=== PATIENT | female | born 1945 | race American Indian/Alaskan Native ===

== ENCOUNTER 2020-09-15 07:58 | Day surgery (SDC) | payer MEDICARE, OTHER ==
[2020-09-15] MEDS ORDERED: BACTERIOSTATIC SODIUM CHLORIDE 0.9% 30 ML VIAL INFILTRATI ONE (08:41)
[2020-09-15] MEDS ORDERED: fentaNYL 100 MCG/2 ML INJ IV NR (08:52)
[2020-09-15] MEDS ORDERED: ONDANSETRON 4 MG/2 ML INJ IV PRN (08:52)
[2020-09-15] MEDS ORDERED: HYDROmorphone 1 MG/1 ML INJ IV PRN ×2 (08:52)
--- NOTE | 2020-09-15 08:53 | Anesthesia Day of Surgery ---
Anesthesia Day of Surgery - Day of Surgery Patient Examined: Yes Patient H&P Reviewed: Yes Patient is NPO: Yes
--- NOTE | 2020-09-15 08:54 | Anesthesia Consultation ---
Anesthesia Consult and Med Hx Date of service: 09/15/20 - Airway Anesthetic Teeth Evaluation: Poor ROM Head & Neck: Adequate Mental/Hyoid Distance: Adequate Mallampati Class: Class II Intubation Access Assessment: Good - Pre-Operative Health Status ASA Pre-Surgery Classification: ASA3 Nerve Block: IS (GA if needed) - Pulmonary Hx Smoking: No Hx Asthma: No COPD: No Hx Pneumonia: No Hx Sleep Apnea: Yes - Cardiovascular System Hx Hypertension: Yes Hx Heart Attack/AMI: No (Pt reports negative NST 2019) Hx Pacemaker: No Hx Internal Defibrillator: No Hx Heart Murmur: No - Central Nervous System Hx Back Pain: No Hx Psychiatric Problems: No - Gastrointestinal Hx Gastroesophageal Reflux Disease: No - Endocrine Hx Renal Disease: Yes Hx End Stage Renal Disease: Yes (Not on HD yet) Hx Cirrhosis: No Hx Liver Disease: No Hx Non-Insulin Dependent Diabetes: Yes - Hematic Hx Anemia: No Hx Sickle Cell Disease: No - Other Systems Hx Alcohol Use: No Hx Substance Use: No Hx Cancer: No Hx Obesity: Yes
[2020-09-15] MEDS ORDERED: MIDAZOLAM 2 MG/2 ML INJ IV NR (09:00)
[2020-09-15] MEDS ORDERED: SODIUM CHLORIDE 0.9% 1000 ML 1,000 ML IV SCH (09:00)
[2020-09-15] MEDS ORDERED: BUPIVACAINE/PF (0.5%) 5 MG/1 ML 30 ML VIAL INFILTRATI ONE ×3 (09:34→11:10)
[2020-09-15] MEDS ORDERED: SODIUM CHLORIDE 0.9% 250ML 250 ML ONE (09:40)
[2020-09-15] MEDS ORDERED: rifAMPin 600 MG VIAL ONE (09:40)
[2020-09-15] MEDS ORDERED: HEPARIN 10,000 UNITS/10 ML VIAL ONE (09:40)
[2020-09-15 09:41] LABS: Hematocrit 29.6 % (30.3-42.9); Hemoglobin 9.9 gm/dl (10.1-14.3); Mean Corpuscular HGB Conc 34 % (30-34); Mean Corpuscular Volume 94 fl (79-97); Platelet Count 245 K/mm3 (140-440); Red Blood Count 3.15 M/mm3 (3.65-5.03); Red Cell Distribution Width 14.3 % (13.2-15.2)
[2020-09-15] MEDS ORDERED: SODIUM CHLORIDE 0.9% 500 ML 500 ML ONE (09:41)
[2020-09-15] MEDS ORDERED: propofoL 200 MG/20 ML VIAL IV ONE ×3 (10:27→11:33)
[2020-09-15] MEDS ORDERED: LIDOCAINE MPF (2%) 20 MG/1 ML VIAL 5 ML ONE (10:27)
[2020-09-15] MEDS ORDERED: HEPARIN 10,000 UNIT/1 ML VIAL IR ONE (11:07)
[2020-09-15] MEDS ORDERED: SODIUM CHLORIDE 0.9% 500 ML IVPB IRRIGATION ONE (11:08)
[2020-09-15] MEDS ORDERED: rifAMPin 600 MG VIAL IV ONE (11:09)
[2020-09-15] MEDS ORDERED: SODIUM CHLORIDE 0.9% IRR 1,500 ML BOTTLE IR ONE (11:09)
[2020-09-15] MEDS ORDERED: ONDANSETRON 4 MG/2 ML INJ ONE (11:56)
--- NOTE | 2020-09-15 12:01 | Short Stay Summary ---
Short Stay Documentation Date of service: 09/15/20 Narrative H&P: See H&P - History H&P: obtained from office - Allergies and Medications Current Medications: Allergies Penicillins Adverse Reaction (Intermediate, Verified 09/11/20 15:08) Dizziness Home Medications Medication Instructions Recorded Confirmed Last Taken Type Aspirin [Adult Aspirin] 81 mg PO DAILY 09/11/20 09/11/20 Unknown History Sitagliptin Phosphate [Januvia] 25 mg PO DAILY 09/11/20 09/11/20 Unknown History Spironolactone [Aldactone] 12.5 mg PO DAILY 09/11/20 09/11/20 Unknown History Ticagrelor [Brilinta] 90 mg PO BID 09/11/20 09/11/20 Unknown History hydrALAZINE [Apresoline TAB] 100 mg PO TID 09/11/20 09/11/20 Unknown History Active Medications Fentanyl (Fentanyl 100 Mcg/2 Ml Inj) 100 mcg IV ONCE NR Stop: 09/15/20 18:00 Hydromorphone HCl (Hydromorphone 1 Mg/1 Ml Inj) 0.25 mg IV Q10MIN PRN PRN Reason: Pain, Moderate (4-6) Stop: 09/15/20 23:00 Hydromorphone HCl (Hydromorphone 1 Mg/1 Ml Inj) 0.5 mg IV Q10MIN PRN PRN Reason: Pain , Severe (7-10) Stop: 09/16/20 23:00 Clindamycin HCl (Cleocin 900 Mg/50 Ml) 900 mg in 50 mls @ 100 mls/hr IV PREOP BARB; Protocol Stop: 09/15/20 23:01 Sodium Chloride (Nacl 0.9% 1000 Ml) 1,000 mls @ 42 mls/hr IV DIRECT BARB Midazolam HCl (Midazolam 2 Mg/2 Ml Inj) 2 mg IV PREOP NR Stop: 09/15/20 23:59 Ondansetron HCl (Ondansetron 4 Mg/2 Ml Inj) 4 mg IV ONCE PRN PRN Reason: Nausea And Vomiting Stop: 09/15/20 18:00 - Brief post op/procedure progress note Date of procedure: 09/15/20 Pre-op diagnosis: End-Stage Renal Disease Post-op diagnosis: same Procedure: Creation of Left Brachial Artery to Left Axillary Vein Arteriovenous Graft with 6 mm Bovine Artegraft Anesthesia: MAC, regional Surgeon: ISELA TOLBERT Estimated blood loss: minimal Pathology: none Condition: stable - Disposition Condition at discharge: Good Disposition: DC-01 TO HOME OR SELFCARE Short Stay Discharge Plan Activity: other (No heavy lifting with left arm for 2 weeks.) Wound: open to air, keep clean and dry, other (Okay to wash left arm wounds with soap and water but do not soak in water for 2 weeks.) Follow up with: ISELA TOLBERT MD [Staff Physician] - 14 Days Prescriptions: HYDROcodone/APAP 7.5-325 [[place] 7.5/325] 1 each PO Q6HR PRN #40 tablet PRN Reason: Pain
--- NOTE | 2020-09-15 12:03 | Operative Report ---
Operative Report Operative Report: Date of procedure: 09/15/2020 Pre-operative diagnosis: End-Stage Renal Disease Post-operative diagnosis: Same Procedure(s): 1. Creation of Left Brachial Artery to Axillary Vein AV Graft with 6 mm Bovine Graft Artergraft Surgeon: Jin Couch MD Real Estate Asset Manager: None Anesthesia: Regional/MAC EBL: Minimal Counts: Correct Complications: None Condition: Stable Findings: Successful Creation of Left Arm AV Graft with Palpable Thrill and Palpable Radial Pulse at the Completion of the Case. Specimen: None Indication: Patient is a 75-year-old female with a history of end-stage renal disease who is in need of long-term dialysis access. She had a vein mapping that demonstrated she is not a candidate for creation of an arteriovenous fistula so she requires creation of an arteriovenous graft. She was given the risk, benefits, and alternative procedures and consented to the procedure. Description of Procedure: Prior to being transported to the operating room the patient had a regional block of the left arm performed. After the block was performed the patient was transported to the operating room and adequately sedated. The patient's left arm was then prepped and draped in normal sterile fashion. A longitudinal incision was made on the medial aspect of the arm just proximal to the ante cubital crease and carried down to the brachial artery using sharp dissection. The brachial artery was dissected out circumferentially both proximally and distally and controlled with vessel loops. A second incision was created in longitudinal fashion on the medial aspect of the arm just distal to the axillary crease and carried down to the axillary vein using sharp dissection. Axillary vein was dissected out circumferentially and controlled with a vessel loop. I then used a Alma-Wick tunneler to tunnel from the brachial artery incision to the axillary vein incision and then put an 6 mm bovine through the tunnel. I infused with heparinized saline to ensure that it was not twisted or kinked. I put the brachial artery vessel loops on tension controlling the flow and then created an arteriotomy using an 11 blade and Bustos scissors. I beveled the graft and created an end-to-side anastomosis using 6-0 Prolene running fashion. I clamped the graft just proximal to the anastomosis and then released the vessel loops restoring flow in the brachial artery. I placed quick clot in incision to achieve hemostasis. I cut the proximal end of the graft to the appropriate length and beveled the graft in preparation for a venous anastomosis. I controlled the axillary vein a Satinsky clamp and created a venotomy using an 11 blade and Bustos scissors. I created an end to side anastomosis using a 6-0 Prolene in running fashion. Prior to completing the anastomosis I flushed the graft to ensure there was no thrombus and then completed the anastamosis. I released all clamps allowing flow into the AV graft which had an excellent thrill. I packed the wound with quick clot to achieve hemostasis. I anesthetized both wounds with 0.5% Marcaine and then closed both wounds in 2 layers using 3-0 Vicryl in running fashion in the deep dermal layer and 4-0 Monocryl in running fashion the subcuticular layer. I dressed both wounds with Dermabond. The patient tolerated the procedure well all sponge, needle, and instrument counts were correct. The patient was taken to recovery in stable condition.
--- NOTE | 2020-09-15 15:19 | Post Anesthesia Evaluation ---
- Post Anesthesia Evaluation Patient Participated: Yes Airway Patent: Yes Stable Respiratory Function: Yes Nausea/Vomiting: No Temp > 96.8F: Yes Pain Manageable: Yes Adequeate Hydration: Yes Anesthesia Complications: No Block Receding Appropriately: Not Applicable Patient on Ventilator: No
[2020-09-15 18:58] VITALS: BP 169/69
== END 2020-09-15 07:59 | disposition home or self-care (01) ==
LOC: OR 07:58
PROVIDERS: ATTEND Surgery Vascular Surgery
DX: I12.0 Hypertensive chronic kidney disease with stage 5 chronic kidney disease or end stage renal disease (principal); E11.22 Type 2 diabetes mellitus with diabetic chronic kidney disease; N18.6 End stage renal disease; G47.30 Sleep apnea, unspecified; E66.9 Obesity, unspecified; Z98.41 Cataract extraction status, right eye; Z98.42 Cataract extraction status, left eye; Z87.440 Personal history of urinary (tract) infections; Z98.890 Other specified postprocedural states; Z68.34 Body mass index [BMI] 34.0-34.9, adult
CPT/HCPCS: 36415; 36830; 64415; 76942; 80048; 82962; 85027; C1768; J1644; J2250; J2405; J2704; J3010; J3490; J7030; J7040; J7050; 64450

== ENCOUNTER 2021-09-23 06:56 | Day surgery (SDC) | payer MEDICARE, OTHER ==
[2021-09-23] MEDS ORDERED: SODIUM CHLORIDE 0.9% 500 ML 500 ML IV SCH (08:00)
[2021-09-23 08:38] LABS: Basophils # (Auto) 0.2 K/mm3 (0.0-0.1); Basophils % (Auto) 2.8 % (0.0-1.8); Eosinophils # (Auto) 0.2 K/mm3 (0.0-0.4); Eosinophils % (Auto) 1.9 % (0.0-4.3); Hematocrit 39.1 % (30.3-42.9); Hemoglobin 12.4 gm/dl (10.1-14.3); Lymphocytes % (Auto) 12.2 % (13.4-35.0); Mean Corpuscular HGB Conc 32 % (30-34); Mean Corpuscular Volume 109 fl (79-97); Monocytes # (Auto) 0.7 K/mm3 (0.0-0.8); Monocytes % (Auto) 8.9 % (0.0-7.3); Platelet Count 217 K/mm3 (140-440); Red Blood Count 3.57 M/mm3 (3.65-5.03); Red Cell Distribution Width 19.9 % (13.2-15.2)
[2021-09-23 08:51] LABS: INR 1.02 (0.87-1.13)
--- NOTE | 2021-09-23 08:53 | Short Stay Summary ---
Short Stay Documentation Date of service: 09/23/21 - History Principal diagnosis: Thrombosed dialysis access Past Medical History: dialysis, ESRD Past Surgical History: Other (Left arm AV graft brachial axillary) - Allergies and Medications Current Medications: Allergies Penicillins Adverse Reaction (Intermediate, Verified 09/11/20 15:08) Dizziness Home Medications Medication Instructions Recorded Confirmed Last Taken Type Aspirin [Adult Aspirin] 81 mg PO DAILY 09/11/20 09/15/20 09/14/20 08:00 History Sitagliptin Phosphate [Januvia] 25 mg PO DAILY 09/11/20 09/15/20 09/14/20 08:00 History Spironolactone [Aldactone] 12.5 mg PO DAILY 09/11/20 09/15/20 09/14/20 08:00 History Ticagrelor [Brilinta] 90 mg PO BID 09/11/20 09/15/20 09/14/20 20:00 History hydrALAZINE [Apresoline TAB] 100 mg PO TID 09/11/20 09/15/20 09/15/20 08:51 History HYDROcodone/APAP 7.5-325 [[place] 1 each PO Q6HR PRN #40 tablet 09/15/20 Unknown Rx 7.5/325] Active Medications Sodium Chloride (Nacl 0.9% 500 Ml) 500 mls @ 50 mls/hr IV DIRECT BARB Stop: 09/23/21 18:00 - Physical exam General appearance: no acute distress Integumentary: no rash, no growths HEENT: Atraumatic Lungs: Normal air movement Breasts: deferred Gastrointestinal: normal Female Genitourinary: deferred Rectal Exam: deferred Extremities: abnormal (Nonpalpable thrill left arm AV graft) Neurological: Normal speech, Normal tone - Brief post op/procedure progress note Date of procedure: 09/23/21 Pre-op diagnosis: Thrombosed dialysis graft Post-op diagnosis: same Procedure: Left dialysis access thrombectomy, venoplasty Anesthesia: local Surgeon: KVNG MAC Estimated blood loss: minimal Pathology: none Condition: stable - Disposition Condition at discharge: Good Disposition: 01 HOME / SELF CARE / HOMELESS Short Stay Discharge Plan Activity: advance as tolerated Weight Bearing Status: Weight Bear as Tolerated Diet: regular Wound: keep clean and dry, per your surgeon's advice (Keep pressure dressing on inferior access site until tomorrow morning) Follow up with: PRIMARY CARE, [Primary Care Provider] - 7 Days
[2021-09-23 08:55] LABS: Calcium 8.4 mg/dL (8.4-10.2)
[2021-09-23 08:58] LABS: Partial Thromboplastin Time 34.3 Sec. (24.2-36.6)
[2021-09-23] MEDS ORDERED: HEPARIN/NS 5000 UNIT/500ML 1,000 ML IR ONE (09:00)
[2021-09-23] MEDS ORDERED: ceFAZolin/Water 2 GM/20 ML 0 GM/0 ML SYRINGE IV ONE ×2 (09:00→09:21)
[2021-09-23] MEDS ORDERED: LIDOCAINE (2%) 20 MG/1 ML VIAL 50 ML MDV INFILTRATI ONE (09:00)
[2021-09-23] MEDS ORDERED: CLINDAMYCIN 600 MG/50 mL 600 MG/50 ML BAG IV ONE (09:34)
[2021-09-23] MEDS: MIDAZOLAM 2 MG/2 ML INJ ONE ×2 (09:45→10:08)
[2021-09-23] MEDS: fentaNYL 100 MCG/2 ML INJ ONE ×2 (09:45→10:08)
[2021-09-23] MEDS ORDERED: WATER FOR INJ Sterile (PF) 10 ML ONE (09:48)
[2021-09-23] MEDS ORDERED: ALTEPLASE 2 MG INJ ONE (09:49)
[2021-09-23] MEDS ORDERED: HEPARIN 10,000 UNITS/10 ML VIAL ONE (09:52)
[2021-09-23] MEDS ORDERED: CLINDAMYCIN 600 MG/50 mL 600 MG/50 ML BAG IV NR (10:00)
--- NOTE | 2021-09-23 10:33 | Operative Report ---
Operative Report Operative Report: Exam: Left arm fistulogram, left arm thrombectomy, venoplasty Clinical indication: Patient with a history of a left arm brachial axillary graft who presents with inability to perform dialysis on Monday secondary to thrombus. Date: 09/23/2021 Procedure: Following an explanation of the risk, benefits and alternatives; written informed consent was obtained. The patient was brought to the angiographic suite and placed in supine position on the examination table. Initial evaluation of the graft demonstrated a nonpalpable thrill throughout the graft. The patient's left upper arm was prepped and draped in the usual sterile fashion. 1% lidocaine was used for anesthesia. Under ultrasound guidance, the graft was accessed towards the venous outflow using a 7 cm 21-gauge needle. A 0.018 guidewire was advanced centrally. The needle was removed and using trocar technique a 7 [place] sheath placed. Access towards the arterial anastomosis was obtained in a similar fashion and an additional 7 [place] sheath placed. A vertebral catheter was advanced over a guidewire through the venous sheath. Together the guidewire and catheter were advanced centrally. Contrast was injected in the subclavian vein and the central veins are widely patent. A previously placed stent is present in the region of the venous anastomosis. Thrombus is present from the stent to the sheath insertion site. A total of 4 mg of tPA were infused throughout the thrombosed fistula. There is some degree of difficulty maneuvering through the graft at cannulation sites. A 7 mm x 40 mm balloon was then advanced over the guidewire through the venous sheath and insufflated at the cannulation sites in the mid to upper portion of the graft. A significant stenosis is identified. Thrombectomy of the graft was then performed using welt stitch cleaner thrombectomy device. A vertebral catheter and 0.035 Glidewire were then advanced through the arterial anastomosis. A Junaid balloon was then advanced over the guidewire and the arterial plug swept free. The Junaid were balloon was removed and the vertebral catheter reinserted. Contrast was injected which demonstrates that the arterial anastomosis was widely patent with inline flow to the lower arm. There appears to be sluggish flow more distally within the graft secondary to retained thrombus and stenosis at the cannulation sites. Through the venous sheath, an 8 mm x 80 mm balloon was advanced and deployed at multiple times throughout the body of the graft and into the venous outflow and previously placed stents. Post intervention imaging demonstrated significantly improved palpable thrill. Contrast was again injected to the vertebral catheter which demonstrates brisk flow to the arterial anastomosis and down the arm. There is significant stenosis at the arterial sheath. The trocar was then advanced over the guidewire through the arterial anastomosis. A 7 mm x 40 mm balloon was then advanced over the guidewire through the venous sheath. The balloon was insufflated and with the arterial sheath temporarily removed venoplasty was performed at the sheath insertion site and used to sweep the retained thrombus free. There was prompt brisk flow throughout the graft. At this point, a strongly palpable thrill was present throughout the graft. The catheters, guidewires and sheaths were removed. Hemostasis was achieved using 3-0 Vicryl suture and manual compression. At the inferior access site, a pressure dressing was also applied given the subcutaneous swelling. The patient tolerated the procedure well. There were no immediate postprocedure complications. Conscious sedation was performed under the guidance of radiologic nursing. Continuous cardiopulmonary monitoring was utilized. Impression: 1)Left arm fistulogram demonstrating thrombus from the arterial anastomosis through previously placed stents in the venous outflow in the region of the venous anastomosis. The central veins are patent. 2) Thrombectomy as described using welt stitch cleaner thrombectomy device and tPA. 3) Venoplasty of stenosis within the body of the graft at the cannulation sites as well as in the venous outflow with the previously placed stents with residual less than 20% stenosis and brisk flow and a strongly palpable thrill. 4) Closure of the access sites using 0 Vicryl suture and manual compression. Pressure dressing was applied on the inferior access site
[2021-09-23 11:21] VITALS: BP 148/61
== END 2021-09-23 11:35 | disposition home or self-care (01) ==
LOC: CATHLABREC 06:56
PROVIDERS: ATTEND Radiology Diagnostic Radiology
DX: T82.868A Thrombosis due to vascular prosthetic devices, implants and grafts, initial encounter (principal); T82.858A Stenosis of other vascular prosthetic devices, implants and grafts, initial encounter; I12.0 Hypertensive chronic kidney disease with stage 5 chronic kidney disease or end stage renal disease; E11.22 Type 2 diabetes mellitus with diabetic chronic kidney disease; N18.6 End stage renal disease; E66.9 Obesity, unspecified; G47.30 Sleep apnea, unspecified; Z79.899 Other long term (current) drug therapy; Z98.41 Cataract extraction status, right eye; Z98.42 Cataract extraction status, left eye; Z87.440 Personal history of urinary (tract) infections; Z98.890 Other specified postprocedural states
CPT/HCPCS: 36415; 36905; 80048; 85025; 85610; 85730; 99156; 99157; C1725; C1751; C1757; C1769; C1894; J1644; J2250; J2997; J3010; J3490; J7040; J7502; J0690; Q9967